=== PATIENT | female | born 1985 | race Caucasian/White ===

== ENCOUNTER 2016-10-10 09:06 | Emergency (ER) | payer BC ==
[2016-10-10 09:23] VITALS: BP 113/77
--- NOTE | 2016-10-10 09:25 | UC ---
Throat Pain/Nasal Chava HPI - HPI Summary HPI Summary: 3 days sinus pain nasal congestion head feels full no fevers - History of Current Complaint Chief Complaint: UCRespiratory Stated Complaint: THROAT AND SINUS COMPLAINT Time Seen by Provider: 10/10/16 09:15 Hx Obtained From: Patient Hx Last Menstrual Period: Hyesterectomy October 2012 ?: No Onset/Duration: Sudden Onset, Lasting Days - 4, Still Present Severity: Moderate Pain Intensity: 4 Pain Scale Used: 0-10 Numeric Cough: None Associated Signs & Symptoms: Positive: Sinus Discomfort, Nasal Discharge - Allergies/Home Medications Allergies/Adverse Reactions: Allergies Allergy/AdvReac Type Severity Reaction Status Date / Time Nitrile gloves Allergy Mild Rash And Uncoded 08/01/15 09:58 Itching Home Medications: Home Medications Nyquil 10/10/16 [History] PMH/Surg Hx/FS Hx/Imm Hx Previously Healthy: No Endocrine History Of: 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 GALLBLADDER REMOVED 2013 @[facility] [place]. ARTHROSCOPIC SURGERY LEFT WRIST - Family History Known Family History: Positive: None Family History: no reported cardiovascular issues in family lineage - Social History Occupation: Employed Full-time Lives: With Family Alcohol Use: Rare Substance Use Type: None Smoking Status (MU): Never Smoked Tobacco - Immunization History Most Recent Influenza Vaccination: Fall 2015 Most Recent Tetanus Shot: 2009 Most Recent Pneumonia Vaccination: never Review of Systems Constitutional: Negative Skin: Negative Eyes: Negative ENT: Ear Ache, Nasal Discharge Respiratory: Negative Cardiovascular: Negative Gastrointestinal: Negative Genitourinary: Negative Motor: Negative Neurovascular: Negative Musculoskeletal: Negative Neurological: Negative Psychological: Negative All Other Systems Reviewed And Are Negative: Yes Physical Exam Triage Information Reviewed: Yes Appearance: Well-Appearing, No Pain Distress, Well-Nourished Vital Signs: Initial Vital Signs Temp 97.1 F 10/10/16 09:11 Pulse 85 10/10/16 09:11 Resp 18 10/10/16 09:11 BP 113/77 10/10/16 09:11 Pulse Ox 100 10/10/16 09:11 Vital Signs Reviewed: Yes Eye Exam: Normal Eyes: Positive: Conjunctiva Clear ENT Exam: Normal ENT: Positive: Normal ENT inspection, Hearing grossly normal, Pharynx normal, Nasal congestion, Nasal drainage. Negative: TMs normal, Tonsillar swelling, Tonsillar exudate, Trismus, Muffled/hoarse voice Dental Exam: Normal Neck exam: Normal Neck: Positive: Supple, Nontender, No Lymphadenopathy Respiratory Exam: Normal Respiratory: Positive: Chest non-tender, Lungs clear, Normal breath sounds, No respiratory distress, No accessory muscle use Cardiovascular Exam: Normal Cardiovascular: Positive: RRR, No Murmur, Pulses Normal, Brisk Capillary Refill Musculoskeletal Exam: Normal Musculoskeletal: Positive: Strength Intact, ROM Intact, No Edema Neurological Exam: Normal Neurological: Positive: Alert, Muscle Tone Normal, Fatigued Psychological Exam: Normal Psychological: Positive: Normal Response To Family, Age Appropriate Behavior Skin Exam: Normal Throat Pain/Nasal Course/Dx - Course Assessment/Plan: flonase, zyrtec D, add antibiodic should sx continue for 6 days or worsen with fevers and chills, follow with pcp - Differential Dx/Diagnosis Differential Diagnosis/HQI/PQRI: Influenza, Laryngitis, Pharyngitis, Sinusitis, URI Provider Diagnoses: Allergic Rhinitis Discharge - Discharge Plan Condition: Stable Disposition: HOME Prescriptions: Amoxicillin/Clavulanate TAB* [Augmentin TAB 875*] 875 mg PO BID #20 tab Cetirizine-Pseudoephedrine [Zyrtec-D Allergy/Congesti] 1 tab PO BID #30 tab Fluticasone NASAL SPRAY 50MCG* [Flonase NASAL SPRAY 50MCG*] 2 spray BOTH NARES DAILY #1 btl Patient Education Materials: Cetirizine/Pseudoephedrine (By mouth), Allergic Rhinitis (ED), How to Use Nasal Jean (ED) Referrals: [facility] [place] PHYSICIAN REFERRAL [Outside] - If Needed
== END 2016-10-10 09:32 | disposition home or self-care (01) ==
LOC: UCEAST 09:06
DX: J30.9 Allergic rhinitis, unspecified (principal)
CPT/HCPCS: 99212; G0463